=== PATIENT | male | born 2005 | race Caucasian/White ===

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

== ENCOUNTER 2024-01-28 11:26 | Emergency (ER) | payer OTHER, SELFPAY ==
[2024-01-28 11:35] VITALS: BP 125/75; PULSE 121; RESP 20; TEMP 37.2; O2SAT 96
[2024-01-28 11:41] VITALS: PULSE 115
--- NOTE | 2024-01-28 11:41 | ECG_ITS ---
SEE SCANNED COPY FOR CONFIRMED REPORT MTDD
[2024-01-28 12:01] VITALS: BP 173/76; PULSE 132; RESP 20; O2SAT 97
[2024-01-28 12:01] LABS: Basophils Absolute Auto 0.1 K/mm3 (0.0-0.1); Basophils Percent Auto 0.5 % (0.2-1.2); Eosinophils Absolute Auto 0.1 K/mm3 (0-0.3); Eosinophils Percent Auto 1.3 % (0-4.4); Hematocrit 53.7 % (42.0-52.0); Hemoglobin 17.6 g/dL (14.0-18.0); Immature Granulocyte Absolute 0.07 K/mm3 (0.00-0.031); Immature Granulocyte Percent A 0.7 % (0-0.5); Lymphocytes Absolute Auto 2.02 K/mm3 (0.9-3.2); Lymphocytes Percent Auto 20.2 % (18.3-44.2); Mean Corpuscular HGB Conc 32.8 g/dl (32-36); Mean Corpuscular Hemoglobin 30.6 pg (26-34); Mean Corpuscular Volume 93.2 fl (80-100); Mean Platelet Volume 10.7 fl (7.4-10.4); Monocytes Absolute Auto 0.7 K/mm3 (0.1-0.6); Monocytes Percent Auto 7.2 % (2.6-8.5); Neutrophils Percent Auto 70.1 % (45.5-73.1); Platelet Count Result 317 k/mm3 (150-375); Red Blood Count 5.76 M/mm3 (4.6-6.20); Red Cell Distribution Width 13.1 % (11.5-14.5)
--- NOTE | 2024-01-28 12:18 | ED.SEIZURE ---
HPI - Seizure General Chief Complaint: Seizure Stated Complaint: seizure Time Seen by Provider: 01/28/24 12:11 Source: patient and family Limitations: no limitations History of Present Illness HPI Narrative: 18 years old white male came to the emergency room after having a seizure, no trauma. Tonic clonic, history of seizure for years on carbamazepine patient report taking his medication daily. He denies any fever, chills, nausea, vomiting, headache or any injury. Last seizure was 2 weeks ago and did not follow-up with neurologist Or any other medical providers Seizure History: Yes Related Data Allergies Allergy/AdvReac Type Severity Reaction Status Date / Time amoxicillin Allergy Mild Unknown Verified 01/28/24 11:27 Review of Systems Review of Systems: All systems reviewed & are unremarkable except as noted in HPI and below Exam Narrative: General appearance: Well-developed, well-nourished Skin: Normal color Head: Normocephalic, nontraumatic Eyes: Clear conjunctiva ENT: Oropharynx normal, ears normal, nose normal Neck: Supple, nontender Chest and respiratory: Airway patent, no respiratory distress, no accessory muscle use Heart: Regular rate/rhythm Abdomen: Soft, nontender, no organomegaly, quiet bowel sounds Vascular: Normal peripheral pulses, normal capillary refill. Musculoskeletal: Normal range of motion, nontender back Neurologic: Alert and oriented ?3, ELECTRICAL INSTALLATION SUPERVISOR is normal as tested, no gross motor deficit Course Consultations Consultation #1: DR DARNELL, PATIENT'S NEUROLOGIST WHO AGREED WITH 1 G KEPPRA IV, AND IS TELLING ME THAT PATIENT IS NONCOMPLIANT WITH HIS APPOINTMENTS LAST TIME WAS SEEN BY HIM IN 2021 AND PATIENT NORMALLY NONCOMPLIANT WITH HIS MEDICATIONS AND THERE IS NO NEED TO INCREASE THE DOSE OR ADD ANY NEW MEDICATION AT THIS TIME JUST LET HIM GO HOME AND CONTACT MY OFFICE SOON POSSIBLE SO I CAN RE-EVALUATE HIM AGAIN. Date: 01/28/24 Time: 13:27 Vital Signs Vital signs: Vital Signs Temperature 37.2 C 01/28/24 11:35 Pulse Rate 121 H 01/28/24 11:35 Respiratory Rate 20 01/28/24 11:35 Blood Pressure 125/75 01/28/24 11:35 Pulse Oximetry 96 01/28/24 11:35 Oxygen Delivery Room Air 01/28/24 11:35 Temperature 37.2 C 01/28/24 11:35 Pulse Rate 132 H 01/28/24 12:01 Respiratory Rate 20 01/28/24 12:01 Blood Pressure 173/76 H 01/28/24 12:01 Pulse Oximetry 97 01/28/24 12:01 Oxygen Delivery Room Air 01/28/24 11:41 MDM - Seizure Lab Data 01/28/24 11:54 01/28/24 11:54 Labs: Lab Results 01/28/24 Range/Units 11:54 WBC 10.0 (4.5-10.0) K/mm3 RBC 5.76 (4.6-6.20) M/mm3 Hgb 17.6 (14.0-18.0) g/dL Hct 53.7 H (42.0-52.0) % MCV 93.2 (80-100) fl MCH 30.6 (26-34) pg MCHC 32.8 (32-36) g/dl RDW 13.1 (11.5-14.5) % Plt Count 317 (150-375) k/mm3 MPV 10.7 H (7.4-10.4) fl Immature Gran % (Auto) 0.7 H (0-0.5) % Neut % (Auto) 70.1 (45.5-73.1) % Lymph % (Auto) 20.2 (18.3-44.2) % [place] % (Auto) 7.2 (2.6-8.5) % Eos % (Auto) 1.3 (0-4.4) % Baso % (Auto) 0.5 (0.2-1.2) % Lymph # (Auto) 2.02 (0.9-3.2) K/mm3 [place] # (Auto) 0.7 H (0.1-0.6) K/mm3 Eos # (Auto) 0.1 (0-0.3) K/mm3 Baso # (Auto) 0.1 (0.0-0.1) K/mm3 Abs Immat Gran (auto) 0.07 H (0.00-0.031) K/mm3 Absolute Neuts (auto) 7.0 H (1.3-6.7) K/mm3 Absolute Nucleated RBC 0.000 (0.0-0.012) K/mm3 Nucleated RBC % 0.0 (0.0-0.2) % Sodium 143 (134-143) mmol/L Potassium 3.6 (3.4-5.0) mmol/L Chloride 106 (98-107) mmol/L Carbon Dioxide 8 L (22-30) mmol/L Anion Gap 29 H (4-12) mmol/L BUN 14 (8-21) mg/dL Creatinine 1.10 (0.7-1.3) mg/dL E
[2024-01-28 12:24] LABS: Albumin Level 5.6 g/dL (3.7-5.6); Alkaline Phosphatase 74 U/L (58-237); Anion Gap 29 mmol/L (4-12); Aspartate Amino Transferase 47 U/L (17-59); Bilirubin,Total 0.7 mg/dL (0.2-1.3); Blood Urea Nitrogen 14 mg/dL (8-21); Carbon Dioxide 8 mmol/L (22-30); Chloride 106 mmol/L (98-107); Estimated CRCL calculation 81 ml/min; Estimated Glomerular Filt Rate > 60; Glucose 119 mg/dL (65-110); Potassium 3.6 mmol/L (3.4-5.0); Sodium 143 mmol/L (134-143)
[2024-01-28 12:33] LABS: Alanine Aminotransferase 58 U/L (6-50)
[2024-01-28] MEDS: levETIRAcetam 1000MG/NACL100ML 1,000 MG/100 ML BAG 400 MG IVPB (13:20)
[2024-02-01 09:13] LABS: Carbamazepine Tegretol <0.2 mcg/mL (4.0-12.0)
== END 2024-01-28 13:49 | disposition home or self-care (01) ==
PROVIDERS: Emergency Medicine; Emergency Provider Emergency Medicine; PCP Pediatrics Adolescent Medicine
DX: G40.909 Epilepsy, unspecified, not intractable, without status epilepticus (principal); R00.0 Tachycardia, unspecified
CPT/HCPCS: 36415; 80053; 80156; 85025; 93005; 96365; 99284; J1953

== ENCOUNTER 2024-03-20 21:00 | Emergency (ER) | payer OTHER, SELFPAY ==
[2024-03-20 20:59] VITALS: BP 114/61; PULSE 123; RESP 24; TEMP 36.8; O2SAT 98
[2024-03-20 21:03] VITALS: PULSE 116
--- NOTE | 2024-03-20 21:03 | ECG_ITS ---
[facility] [address] Test Date: 2024-03-20 Pat Name: Tulio Esparza Department: Room: Gender: M Client Account Specialist: : 2005 Requested By: Nemo Gong Order Number: [id number] Luis Felipe MD: Mikey Felipe M.D. Measurements Intervals [place] Rate: 114 P: 41 KS: 135 QRS: 76 QRSD: 86 T: 48 QT: 279 QTc: 386 Interpretive Statements SINUS TACHYCARDIA ABNORMAL RHYTHM ECG No previous ECG available for comparison Electronically Signed On 03-21-2024 08:10:25 CDT by Mikey Felipe M.D.
[2024-03-20 21:04] VITALS: O2SAT 96; O2SAT 97
[2024-03-20 21:09] VITALS: O2SAT 97
[2024-03-20 21:15] VITALS: BP 108/51; PULSE 109; RESP 23; O2SAT 95
[2024-03-20 21:18] LABS: Basophils Absolute Auto 0.1 K/mm3 (0.0-0.1); Basophils Percent Auto 0.6 % (0.2-1.2); Eosinophils Absolute Auto 0.1 K/mm3 (0-0.3); Eosinophils Percent Auto 1.1 % (0-4.4); Hematocrit 48.7 % (42.0-52.0); Immature Granulocyte Absolute 0.05 K/mm3 (0.00-0.031); Immature Granulocyte Percent A 0.6 % (0-0.5); Lymphocytes Absolute Auto 0.95 K/mm3 (0.9-3.2); Lymphocytes Percent Auto 11.5 % (18.3-44.2); Mean Corpuscular HGB Conc 34.9 g/dl (32-36); Mean Corpuscular Volume 88.9 fl (80-100); Mean Platelet Volume 10.5 fl (7.4-10.4); Monocytes Absolute Auto 0.4 K/mm3 (0.1-0.6); Monocytes Percent Auto 5.1 % (2.6-8.5); Neutrophils Absolute Auto 6.7 K/mm3 (1.3-6.7); Neutrophils Percent Auto 81.1 % (45.5-73.1); Platelet Count Result 254 k/mm3 (150-375); Red Blood Count 5.48 M/mm3 (4.6-6.20); Red Cell Distribution Width 11.9 % (11.5-14.5); White Blood Count 8.3 K/mm3 (4.5-10.0)
[2024-03-20 21:32] LABS: Albumin Level 5.2 g/dL (3.7-5.6); Alkaline Phosphatase 61 U/L (58-237); Anion Gap 21 mmol/L (4-12); Aspartate Amino Transferase 39 U/L (17-59); Bilirubin,Total 0.4 mg/dL (0.2-1.3); Blood Urea Nitrogen 15 mg/dL (8-21); Calcium 10.2 mg/dL (8.9-10.7); Carbon Dioxide 14 mmol/L (22-30); Chloride 107 mmol/L (98-107); Estimated CRCL calculation 80 ml/min; Estimated Glomerular Filt Rate > 60; Glucose 111 mg/dL (65-110); Magnesium 2.6 mg/dL (1.6-2.3); Partial Thromboplastin Time 20.3 Seconds (22.3-36.8); Potassium 3.9 mmol/L (3.4-5.0); Sodium 142 mmol/L (134-143)
[2024-03-20 21:36] LABS: Alanine Aminotransferase 47 U/L (6-50)
[2024-03-20 21:40] VITALS: BP 102/62; PULSE 79; RESP 15; O2SAT 100
--- NOTE | 2024-03-20 23:41 | ED.SEIZURE ---
HPI - Seizure General Chief Complaint: Seizure Stated Complaint: SEIZURE Time Seen by Provider: 03/20/24 21:48 History of Present Illness HPI Narrative: pt with h/o sz on meds presents after witnessed seizure; denies missing his meds, lack of sleep, or ETOH or drug use; denies sx now. Seizure History: Yes Related Data Home Medications Medication Instructions Recorded Confirmed oxcarbazepine 600 mg tablet mg 03/20/24 Allergies Allergy/AdvReac Type Severity Reaction Status Date / Time amoxicillin Allergy Mild Unknown Verified 01/28/24 11:27 Review of Systems Review of Systems: All systems reviewed & are unremarkable except as noted in HPI and below Exam Narrative: EXAMINATION OF ORGAN SYSTEMS/BODY AREAS: Constitutional: Vital signs per nursing GENERAL:[No acute distress, non-toxic appearing.] HEAD: Normal with no signs of head trauma. EYES: EOMI, conjunctiva normal ENT: Hearing grossly intact LUNGS: Nonlabored breathing. HEART: [Regular rate and rhythm] ABD: no distension EXT: Normal range of motion SKIN: [No rashes or lesions.] NEURO: [Alert and oriented x 3. No gross focal sensory or strength deficits.] Clear speech. PSYCH: Normal affect Course Vital Signs Vital signs: Vital Signs Temperature 98.3 F 03/20/24 20:59 Pulse Rate 123 H 03/20/24 20:59 Respiratory Rate 24 H 03/20/24 20:59 Blood Pressure 114/61 03/20/24 20:59 Pulse Oximetry 98 03/20/24 20:59 Oxygen Delivery Room Air 03/20/24 20:59 Temperature 98.3 F 03/20/24 20:59 Pulse Rate 79 03/20/24 21:40 Respiratory Rate 15 03/20/24 21:40 Blood Pressure 102/62 03/20/24 21:40 Pulse Oximetry 100 03/20/24 21:40 Oxygen Delivery Room Air 03/20/24 21:09 MDM - Seizure MDM Narrative Medical decision making narrative: 18-year-old male with history of seizures presents here with breakthrough seizure, he insists and his family insists that he has been taking all his medications, he has had 3 breakthrough seizures in last 3 months and is following up with this neurologist about this.. Provided return precautions for any further issues, he has no complaints here, is neurologically intact, I do not feel any further treatment or workup necessary at this time and patient and parents agreeable to outpatient management. Lab Data 03/20/24 21:11 03/20/24 21:11 Labs: Lab Results 03/20/24 Range/Units 21:11 WBC 8.3 (4.5-10.0) K/mm3 RBC 5.48 (4.6-6.20) M/mm3 Hgb 17.0 (14.0-18.0) g/dL Hct 48.7 (42.0-52.0) % MCV 88.9 (80-100) fl MCH 31.0 (26-34) pg MCHC 34.9 (32-36) g/dl RDW 11.9 (11.5-14.5) % Plt Count 254 (150-375) k/mm3 MPV 10.5 H (7.4-10.4) fl Immature Gran % (Auto) 0.6 H (0-0.5) % Neut % (Auto) 81.1 H (45.5-73.1) % Lymph % (Auto) 11.5 L (18.3-44.2) % [place] % (Auto) 5.1 (2.6-8.5) % Eos % (Auto) 1.1 (0-4.4) % Baso % (Auto) 0.6 (0.2-1.2) % Lymph # (Auto) 0.95 (0.9-3.2) K/mm3 [place] # (Auto) 0.4 (0.1-0.6) K/mm3 Eos # (Auto) 0.1 (0-0.3) K/mm3 Baso # (Auto) 0.1 (0.0-0.1) K/mm3 Abs Immat Gran (auto) 0.05 H (0.00-0.031) K/mm3 Absolute Neuts (auto) 6.7 (1.3-6.7) K/mm3 Absolute Nucleated RBC 0.000 (0.0-0.012) K/mm3 Nucleated RBC % 0.0 (0.0-0.2) % PT 14.0 (11.1-14.7) Seconds INR 1.0 APTT 20.3 L (22.3-36.8) Seconds Sodium 142 (134-143) mmol/L Potassium 3.9 (3.4-5.0) mmol/L Chloride 107 (98-107) mmol/L Carbon Dioxide 14 L (22-30) mmol/L Anion Gap 21 H (4-12) mmol/L BUN 15 (8-21) mg/dL Creatinine 1.10 (0.7-1.3) mg/dL Estim Creat Clear Calc 80 ml/min Estimated GFR > 60 (59 - ) Glucose 111 H (65-110) mg/dL Calcium 10.2 (8.9-10.7) mg/dL Magnesium 2.6 H (1.6-2.3) mg/dL Total Bilirubin 0.4 (0.2-1.3) mg/dL AST 39 (17-59) U/L ALT 47 (6-50) U/L Alkaline Phosphatase 61 (58-237) U/L Total Protein 8.0 (6.3-8.6) g/dL Albumin 5.2 (3.7-5.6) g/dL Discharge
== END 2024-03-20 22:28 | disposition home or self-care (01) ==
PROVIDERS: Emergency Provider Emergency Medicine; PCP Pediatrics Adolescent Medicine
DX: G40.909 Epilepsy, unspecified, not intractable, without status epilepticus (principal)
CPT/HCPCS: 36415; 80053; 83735; 85025; 85610; 85730; 93005; 99284

== ENCOUNTER 2025-04-06 06:45 | Emergency (ER) | payer OTHER, SELFPAY ==
[2025-04-06 06:47] VITALS: BP 115/71; PULSE 100; RESP 13; TEMP 36.6; O2SAT 100
[2025-04-06 06:58] VITALS: O2SAT 100
[2025-04-06 06:59] VITALS: PULSE 70
--- NOTE | 2025-04-06 07:02 | ED_ITS ---
HPI - Seizure General Chief Complaint: Seizure Stated Complaint: I had a seizure Time Seen by Provider: 04/06/25 07:00 Source: patient Mode of arrival: ambulatory History of Present Illness HPI Narrative: 19 years old white male with history of seizure currently on Keppra does not know does and Trileptal. Works as a counter waitress/waiter, at work had sudden onset of shaking of the left upper extremity lasted for about 1 minute, no loss of consciousness, no tongue biting, no urine incontinence, patient was awake the whole time. Patient is telling me that he had similar symptoms like base but usually he fell to the ground with his previous seizures. Currently patient denying any fever, chills, nausea, vomiting, headache, trouble urinating. Patient drinks occasionally, does not smoke or use drugs Seizure History: Yes Related Data Home Medications ?Medication ?Instructions ?Recorded ?Confirmed ?Last Taken ?Type oxcarbazepine 600 mg tablet mg 03/20/24 03/20/24 09:00 History 500 Allergies Allergy/AdvReac Type Severity Reaction Status Date / Time amoxicillin Allergy Mild Unknown Verified 04/06/25 06:46 Review of Systems Review of Systems: All systems reviewed & are unremarkable except as noted in HPI and below Exam Narrative: General appearance: Well-developed, well-nourished Skin: Normal color Head: Normocephalic, nontraumatic Eyes: Clear conjunctiva ENT: Oropharynx normal, ears normal, nose normal Neck: Supple, nontender Chest and respiratory: Airway patent, no respiratory distress, no accessory muscle use Heart: Regular rate/rhythm Abdomen: Soft, nontender, no organomegaly, quiet bowel sounds Vascular: Normal peripheral pulses, normal capillary refill. Musculoskeletal: Normal range of motion, nontender back Neurologic: Alert and oriented ?3, ENGRAVER FLATWARE is normal as tested, no gross motor deficit Course Vital Signs Vital signs: Vital Signs Temperature 36.6 C 04/06/25 06:47 Pulse Rate 100 04/06/25 06:47 Respiratory Rate 13 04/06/25 06:47 Blood Pressure 115/71 04/06/25 06:47 Pulse Oximetry 100 04/06/25 06:47 Oxygen Delivery Room Air 04/06/25 06:47 Temperature 36.6 C 04/06/25 06:47 Pulse Rate 70 04/06/25 06:59 Respiratory Rate 13 04/06/25 06:47 Blood Pressure 115/71 04/06/25 06:47 Pulse Oximetry 100 04/06/25 06:58 Oxygen Delivery Room Air 04/06/25 07:13 MDM - Seizure MDM Narrative Medical decision making narrative: Patient presents with possible seizure-like activity Vital signs are stable Physical examination is unremarkable Differential diagnosis seizure-like activity, stress like symptoms Imaging and labs are not appropriate at this time. My plan to give patient 1 dose of Keppra IV and follow-up with his neurologist for further evaluation. Differential Diagnosis Differential diagnosis: Likely other (As above) Critical Care Time Critical Care Time Critical Care Time: No Discharge Plan Discharge Clinical Impression: Recurrent seizures Patient Disposition: Home Condition: Improved Instructions: Recurrent Seizures in Adults (ED) Additional Instructions: Return if symptoms are worsening , call your neurologist as soon as possible for appointment, take Tylenol as as needed for aches and pain, continue home medications. Do not drive any motor vehicle until you see neurologist and to get a permission of that. Patient Language: Kinyarwanda Prescriptions: No Action oxcarbazepine 600 mg tablet Follow-up/Referrals: Jessie,Melissa Duval MD [Primary Care Provider] - Stand Alone Forms: Work/School Release IP
[2025-04-06] MEDS: levETIRAcetam 1000MG/NACL100ML 1,000 MG/100 ML BAG 400 MG IVPB (07:16)
[2025-04-06 08:03] VITALS: BP 108/64; PULSE 68; RESP 18; TEMP 36.6; O2SAT 100
== END 2025-04-06 07:55 | disposition home or self-care (01) ==
PROVIDERS: Emergency Provider Emergency Medicine; PCP Pediatrics Adolescent Medicine
DX: G40.909 Epilepsy, unspecified, not intractable, without status epilepticus (principal)
CPT/HCPCS: 96374; 99284; J1953